=== PATIENT | male | born 1980 ===

== ENCOUNTER 2024-11-02 10:45 | Inpatient (IN) | payer OTHER ==
[~2024-11-02] VITALS: Ht 188 cm; Wt 135.2 kg
[2024-11-03 12:07] LABS: HEMATOCRIT 46.8 % (39.0-48.0); HEMOGLOBIN 15.7 g/dL (13-16.00); MEAN CELL VOLUME 87.3 fL (80.0-100.00); MEAN CORPUSCULAR HEMOGLOBIN 29.4 pg (27.00-32.0); MEAN CORPUSCULAR HGB CONC 33.6 g/dl (32.0-36.0); PLATELET COUNT 200 K/uL (150-450); RED BLOOD COUNT 5.35 M/uL (4.00-6.00); RED CELL DISTRIBUTION WIDTH 14.8 % (11.5-14.5)
[2024-11-03 12:08] LABS: URINE APPEARANCE Clear; URINE BILIRRUBIN Negative (NEGATIVE); URINE BLOOD Negative; URINE COLOR Yellow; URINE GLUCOSE Negative (NEGATIVE); URINE KETONE Negative (NEGATIVE); URINE LEUKOCYTE Negative; URINE NITRATE Negative; URINE PROTEIN Negative (NEGATIVE); URINE UROBILINOGEN 0.2 E.U./dl
[2024-11-03 12:17] LABS: URINE BACTERIA 23.2 uL (0.0-1933); URINE WBC 1.8 uL (0.0-23.2)
[2024-11-03 12:23] LABS: INR 1.11; PARTIAL THROMBOPLASTIN TIME 35.3 SECONDS (22.0-34.0)
[2024-11-03 12:25] LABS: COVID-19 AG NEGATIVE (NEGATIVE)
[2024-11-03 12:42] LABS: CALCIUM 9.2 mg/dL (8.5-10.1); CREATININE SERUM 0.72 mg/dL (0.70-1.30); GFR 118.05; POTASSIUM 4.61 mEq/L (3.5-5.1)
[2024-11-03 13:04] LABS: URINE EPITHELIAL CELLS 0.4 uL (0.0-38.8); URINE RBC 1.1 uL (0.0-20.8)
[2024-11-03 13:22] VITALS: BP 108/73
[2024-11-03 13:34] LABS: RH POSITIVE
[2024-11-09] MEDS ORDERED: CEFAZOLIN SODIUM 1,000 MG VIAL ONE (10:40)
[2024-11-09] MEDS ORDERED: DESMOPRESSIN ACETATE 4 MCG/ML AMPUL IV ONE (10:45)
[2024-11-09] MEDS ORDERED: BUPIVACAINE HCL/MPF 0.5% 30ML VIAL ONE (11:37)
[2024-11-09] MEDS ORDERED: HEMOSTATIC MATRIX 1 KIT KIT TOP ONE ×2 (11:38→15:42)
[2024-11-09] MEDS ORDERED: SURGIFLO APPLICATOR 1 EACH APPL TOP ONE (11:38)
[2024-11-09] MEDS ORDERED: ENOXAPARIN SODIUM 40 MG/0.4 ML SYRINGE SUBCUTANEO ONE (11:40)
[2024-11-09] MEDS ORDERED: SUGAMMADEX SODIUM 200 MG/2 ML VIAL IV ONE (16:16)
[2024-11-09] MEDS ORDERED: ONDANSETRON HCL 2 MG/ML VIAL IV PRN (16:30)
[2024-11-09] MEDS ORDERED: OxyCODONE HCL/APAP UD (PERCOCET) PO PRN (16:30)
[2024-11-09] MEDS ORDERED: RINGERS SOLUTION,LACTATED 1,000 ML IV SCH (16:30)
[2024-11-09] MEDS ORDERED: MORPHINE SULFATE 4 MG/ML CARTRIDGE IV PRN (16:30)
[2024-11-09] MEDS ORDERED: GABAPENTIN 300 MG CAPSULE PO SCH (17:00)
[2024-11-09] MEDS ORDERED: CEFAZOLIN SODIUM 1,000 MG VIAL IV SCH (21:00)
[2024-11-09] MEDS ORDERED: FAMOTIDINE/PF 20 MG/2 ML VIAL IV SCH (21:00)
[2024-11-10 01:08] VITALS: BP 115/73; O2SAT 95
[2024-11-10 07:01] LABS: HEMATOCRIT 43.3 % (39.0-48.0); HEMOGLOBIN 14.3 g/dL (13-16.00); MEAN CELL VOLUME 89.8 fL (80.0-100.00); MEAN CORPUSCULAR HEMOGLOBIN 29.6 pg (27.00-32.0); PLATELET COUNT 203 K/uL (150-450); RED BLOOD COUNT 4.83 M/uL (4.00-6.00); RED CELL DISTRIBUTION WIDTH 14.3 % (11.5-14.5)
[2024-11-10 07:32] LABS: CALCIUM 8.4 mg/dL (8.5-10.1); CREATININE SERUM 0.81 mg/dL (0.70-1.30); GFR 103.05; PHOSPHOROUS 4.5 mg/dL (2.5-4.9); POTASSIUM 4.91 mEq/L (3.5-5.1)
[2024-11-10 08:41] VITALS: BP 110/76; O2SAT 96
[2024-11-10] MEDS ORDERED: ENOXAPARIN SODIUM 40 MG/0.4 ML SYRINGE SUBCUTANEO SCH (09:00)
[2024-11-10] MEDS ORDERED: POLYETHYLENE GLYCOL 3350 17 GM BLIST.PACK PO SCH (17:00)
== END 2024-11-10 17:20 | disposition home or self-care (01) | DRG 707 ==
LOC: SURG 11-09 05:49 → O/R 11-09 05:49 → SURH 11-09 10:45 → SURG 11-09 17:39
PROVIDERS: ADMIT Urology; ATTEND Urology
PROC: 8E0W4CZ Robotic Assisted Procedure of Trunk Region, Percutaneous Endoscopic Approach (ICD-10-PCS; 2024-11-09)
PROC: 0VT04ZZ Resection of Prostate, Percutaneous Endoscopic Approach (ICD-10-PCS; principal; 2024-11-09 13:15)
DX: C61 Malignant neoplasm of prostate (principal); C79.11 Secondary malignant neoplasm of bladder
CPT/HCPCS: 55866; S2900

== ENCOUNTER 2024-11-17 08:55 | Outpatient (CLI) | payer OTHER | END 2024-11-17 09:06 | disposition home or self-care (01) | LOC: TOM 08:55 | PROVIDERS: ATTEND Urology | DX: C61 Malignant neoplasm of prostate (principal) ==